=== PATIENT | female | born 1965 | race Caucasian/White ===

== ENCOUNTER 2018-04-06 12:14 | Emergency (ER) | payer OTHER ==
[2018-04-06] MEDS: ONDANSETRON (ODT) 4 MG TAB ODT (14:20)
[2018-04-06] MEDS: HYDROCODONE/APAP (10/325) TAB PO (14:20)
== END 2018-04-06 15:23 | disposition home or self-care (01) ==
LOC: E/R 12:14
DX: M25.511 Pain in right shoulder (principal); G93.5 Compression of brain; I10 Essential (primary) hypertension; R40.2142 Coma scale, eyes open, spontaneous, at arrival to emergency department; R40.2362 Coma scale, best motor response, obeys commands, at arrival to emergency department; R40.2252 Coma scale, best verbal response, oriented, at arrival to emergency department; Z79.82 Long term (current) use of aspirin
CPT/HCPCS: 70450; 73030-RT; 93005; 99285-25